=== PATIENT | female | born 1990 | race Caucasian/White ===

== ENCOUNTER 2020-08-08 09:07 | Emergency (ER) | payer SELFPAY ==
[~2020-08-08] VITALS: Ht 154.9 cm; Wt 86.2 kg
[2020-08-08 09:19] VITALS: BP 144/93
[2020-08-08 09:57] LABS: BASOPHILS % (AUTO) 0.4 % (0.0-2.0); EOSINOPHILS % (AUTO) 0.1 % (0.0-4.0); HEMATOCRIT 35.8 % (36-48); HEMOGLOBIN 12.1 g/dL (12.0-16.0); LYMPHOCYTES # (AUTO) 0.9 K/uL (2.5-16.5); LYMPHOCYTES % (AUTO) 7.1 % (20.5-51.1); MEAN CORPUSCULAR HEMOGLOBIN 31 pg (27-31); MEAN CORPUSCULAR HGB CONC 34 g/dL (33-37); MEAN CORPUSCULAR VOLUME 92.9 fL (80-94); MONOCYTES # (AUTO) 0.5 K/uL (0.8-1.0); MONOCYTES % (AUTO) 4.1 % (1.7-9.3); NEUTROPHILS # (AUTO) 10.6 K/uL (1.8-7.7); NEUTROPHILS % (AUTO) 88.3 % (42.2-75.2); PLATELET COUNT (AUTO) 321 K/uL (140-450); RED BLOOD CELL COUNT(AUTO) 3.86 MIL/uL (4.20-5.40); RED CELL DISTRIBUTION WIDTH 12.6 % (11.6-13.7)
[2020-08-08] MEDS: DICYCLOMINE 20 MG/2 ML VIAL IM ONE (10:02)
[2020-08-08 10:06] LABS: APPEARANCE,URINE CLEAR (CLEAR); BILIRUBIN,URINE NEGATIVE (NEGATIVE); BLOOD, URINE 2+ (NEGATIVE); COLOR,URINE YELLOW (YELLOW); LEUKOCYTE ESTERASE ,URINE NEGATIVE (NEGATIVE); NITRITE, URINE NEGATIVE (NEGATIVE); UGLUCOSE NEGATIVE (NEGATIVE)
[2020-08-08 10:12] LABS: ALBUMIN 3.4 g/dL (3.4-5.0); CARBON DIOXIDE 25.7 mmol/L (21-32); CREATININE 0.6 mg/dL (0.6-1.3); POTASSIUM 3.7 mmol/L (3.5-5.1); TOTAL BILIRUBIN 0.3 mg/dL (0.0-1.0)
[2020-08-08 10:17] LABS: RBC,URINE 0-5 /HPF (0-5); WBC,URINE 0-5 /HPF (0-5)
[2020-08-08] MEDS ORDERED: METR500T1 PO (11:28)
[2020-08-08] MEDS ORDERED: BEN10 PO (11:28)
[2020-08-08] MEDS ORDERED: CIPR500T4 PO (11:28)
[2020-08-08] MEDS ORDERED: NAPR-54 PO (11:28)
[2020-08-08 11:50] VITALS: BP 154/93
== END 2020-08-08 11:45 | disposition home or self-care (01) ==
LOC: MED 09:07
DX: K57.32 Diverticulitis of large intestine without perforation or abscess without bleeding (principal); Z79.899 Other long term (current) drug therapy; Z79.1 Long term (current) use of non-steroidal anti-inflammatories (NSAID); Z79.2 Long term (current) use of antibiotics
CPT/HCPCS: 36415; 74176; 80053; 81001; 81025; 83690; 85025; 96372; 99284; J0500

== ENCOUNTER 2021-05-31 18:46 | Emergency (ER) | payer MEDICAID ==
[~2021-05-31] VITALS: Ht 162.6 cm; Wt 72.1 kg
[~2021-05-31 18:46] MED LIST: BEN10 PO; CIPR500T4 PO; METR500T1 PO; NAPR-54 PO
[2021-05-31 18:49] VITALS: BP 118/85
--- NOTE | 2021-05-31 18:55 | NUR ---
PT AMBULATED TO BED, STEADY GAIT.
--- NOTE | 2021-05-31 19:00 | NUR ---
31 Y/O F AMBULATED TO BED 1, C/O ABD X 1 ON IN OFF, NAUSEA AND CONSTIPATION SINCE YESTERDAY TAKING AMOXICILLIN AND TYLENOL WITH LITTLE RELIEF. MEDHX: DIVERTICULITIS NKDA
--- NOTE | 2021-05-31 19:06 | NUR ---
LAB AT BEDSIDE TO DRAW BLOOD WORK
[2021-05-31 19:16] LABS: BASOPHILS # (AUTO) 0.1 K/uL (0.00-0.22); BASOPHILS % (AUTO) 0.6 % (0.0-2.0); EOSINOPHILS % (AUTO) 0.2 % (0.0-4.0); HEMATOCRIT 35.7 % (36-48); HEMOGLOBIN 11.7 g/dL (12.0-16.0); LYMPHOCYTES # (AUTO) 1.7 K/uL (2.5-16.5); LYMPHOCYTES % (AUTO) 11.7 % (20.5-51.1); MEAN CORPUSCULAR HEMOGLOBIN 30 pg (27-31); MEAN CORPUSCULAR HGB CONC 33 g/dL (33-37); MEAN CORPUSCULAR VOLUME 92.3 fL (80-94); MONOCYTES # (AUTO) 0.9 K/uL (0.8-1.0); MONOCYTES % (AUTO) 5.9 % (1.7-9.3); NEUTROPHILS # (AUTO) 12.1 K/uL (1.8-7.7); NEUTROPHILS % (AUTO) 81.6 % (42.2-75.2); PLATELET COUNT (AUTO) 389 K/uL (140-450); RED BLOOD CELL COUNT(AUTO) 3.87 MIL/uL (4.20-5.40); RED CELL DISTRIBUTION WIDTH 12.3 % (11.6-13.7); WHITE BLOOD COUNT (AUTO) 14.9 K/uL (4.8-10.8)
--- NOTE | 2021-05-31 19:22 | NUR ---
Pt report given to RADHA Landeros. Transfer of care at this time.
[2021-05-31 19:25] LABS: BILIRUBIN,URINE NEGATIVE (NEGATIVE); BLOOD, URINE 2+ (NEGATIVE); COLOR,URINE YELLOW (YELLOW); LEUKOCYTE ESTERASE ,URINE TRACE (NEGATIVE); NITRITE, URINE NEGATIVE (NEGATIVE); UGLUCOSE NEGATIVE (NEGATIVE)
[2021-05-31 19:28] LABS: APPEARANCE,URINE HAZY (CLEAR)
--- NOTE | 2021-05-31 19:32 | NUR ---
Dr. Sherwood examining patient.
[2021-05-31] MEDS ORDERED: MORPHINE SULFATE 4 MG/ML SYR IVP ONE (19:35)
[2021-05-31] MEDS ORDERED: DICYCLOMINE HCL LIQUID 10 MG/5 ML UDC PO ONE (19:35)
[2021-05-31] MEDS ORDERED: ONDANSETRON 4 MG/2 ML VIAL IVP ONE (19:35)
[2021-05-31] MEDS ORDERED: NACL 0.9% 1,000 ML IV ONE (19:35)
[2021-05-31 19:37] LABS: RBC,URINE 0-5 /HPF (0-5)
[2021-05-31 19:38] LABS: ANION GAP 15.1 (8-16); CARBON DIOXIDE 24.2 mmol/L (21-32); CREATININE 0.7 mg/dL (0.6-1.3); POTASSIUM 3.3 mmol/L (3.5-5.1)
[2021-05-31 19:43] LABS: ALBUMIN 3.5 g/dL (3.4-5.0); TOTAL BILIRUBIN 0.5 mg/dL (0.0-1.0)
--- NOTE | 2021-05-31 20:34 | NUR ---
PT TAKEN TO CT VIA WC
--- NOTE | 2021-05-31 20:35 | NUR ---
Julien sanchez in [facility] - 05/31/21 at 2035 by HALLEY PT TAKEN TO CT VIA W/C
[2021-05-31] MEDS ORDERED: ACET-10509 PO (22:08)
[2021-05-31] MEDS ORDERED: BEN10 PO (22:08)
[2021-05-31] MEDS ORDERED: AMOX1TAB8 PO (22:08)
[2021-05-31] MEDS ORDERED: CEPH-588 PO (22:10)
[2021-05-31] MEDS ORDERED: cephALEXin 500 MG CAP PO ONE (22:15)
[2021-05-31] MEDS ORDERED: AMOXIL/CLAVULANATE 875/125 MG 1 TAB PO ONE (22:15)
[2021-05-31 22:30] VITALS: BP 118/85
--- NOTE | 2021-05-31 22:30 | NUR ---
Patient discharged with v/s stable. Written and verbal after care instructions given and explained. Patient alert, oriented and verbalized understanding of instructions. Ambulatory with steady gait. All questions addressed prior to discharge. ID band removed. Patient advised to follow up with PMD. Rx of keflex, Amoxicillin, Bentyl given. Patient educated on indication of medication including possible reaction and side effects. Opportunity to ask questions provided and answered.
== END 2021-05-31 22:30 | disposition home or self-care (01) ==
LOC: MED 18:46
DX: K57.92 Diverticulitis of intestine, part unspecified, without perforation or abscess without bleeding (principal); N39.0 Urinary tract infection, site not specified; E87.6 Hypokalemia; Z79.899 Other long term (current) drug therapy
CPT/HCPCS: 36415; 74176; 80053; 81001; 81025; 83690; 85025; 87086; 96361; 96374; 96375; 99284; J2270; J2405; J7030

== ENCOUNTER 2021-06-07 03:16 | Emergency (ER) | payer MEDICAID ==
[~2021-06-07] VITALS: Ht 162.6 cm; Wt 71.2 kg
[~2021-06-07 03:16] MED LIST changes: +ACET-10509 PO; +AMOX1TAB8 PO; +CEPH-588 PO
[2021-06-07 03:19] VITALS: BP 120/73
[2021-06-07] MEDS ORDERED: MORPHINE SULFATE 4 MG/ML SYR IVP ONE (03:35)
[2021-06-07] MEDS ORDERED: ONDANSETRON 4 MG/2 ML VIAL IVP ONE (03:35)
[2021-06-07 03:50] LABS: APPEARANCE,URINE CLEAR (CLEAR); BILIRUBIN,URINE NEGATIVE (NEGATIVE); BLOOD, URINE 3+ (NEGATIVE); COLOR,URINE YELLOW (YELLOW); LEUKOCYTE ESTERASE ,URINE NEGATIVE (NEGATIVE); NITRITE, URINE NEGATIVE (NEGATIVE); UGLUCOSE NEGATIVE (NEGATIVE)
[2021-06-07 04:00] LABS: BASOPHILS % (AUTO) 0.2 % (0.0-2.0); EOSINOPHILS % (AUTO) 0.3 % (0.0-4.0); HEMOGLOBIN 11.1 g/dL (12.0-16.0); LYMPHOCYTES # (AUTO) 2.4 K/uL (2.5-16.5); LYMPHOCYTES % (AUTO) 19.6 % (20.5-51.1); MEAN CORPUSCULAR HEMOGLOBIN 30 pg (27-31); MEAN CORPUSCULAR HGB CONC 33 g/dL (33-37); MEAN CORPUSCULAR VOLUME 92.7 fL (80-94); MONOCYTES # (AUTO) 0.5 K/uL (0.8-1.0); MONOCYTES % (AUTO) 4.4 % (1.7-9.3); NEUTROPHILS # (AUTO) 9.1 K/uL (1.8-7.7); NEUTROPHILS % (AUTO) 75.5 % (42.2-75.2); PLATELET COUNT (AUTO) 418 K/uL (140-450); RED BLOOD CELL COUNT(AUTO) 3.67 MIL/uL (4.20-5.40); RED CELL DISTRIBUTION WIDTH 12.2 % (11.6-13.7); WHITE BLOOD COUNT (AUTO) 12.1 K/uL (4.8-10.8)
[2021-06-07 04:08] LABS: RBC,URINE 50-80 /HPF (0-5); WBC,URINE 0-5 /HPF (0-5)
[2021-06-07 04:09] LABS: ALBUMIN 3.3 g/dL (3.4-5.0); ANION GAP 12.9 (8-16); CARBON DIOXIDE 26.2 mmol/L (21-32); CREATININE 0.7 mg/dL (0.6-1.3); POTASSIUM 3.1 mmol/L (3.5-5.1); TOTAL BILIRUBIN 0.2 mg/dL (0.0-1.0)
[2021-06-07] MEDS ORDERED: HYDROcodone/APAP 5/325 MG 1 TAB TAB PO ONE (05:05)
[2021-06-07] MEDS ORDERED: KETOROLAC 30 MG/ML VIAL IVP ONE (05:05)
[2021-06-07] MEDS ORDERED: ACET-9525 PO (06:54)
[2021-06-07] MEDS ORDERED: METR-435 PO (06:54)
[2021-06-07] MEDS ORDERED: CIPR500T4 PO (06:54)
[2021-06-07 07:02] VITALS: BP 118/74
== END 2021-06-07 07:02 | disposition home or self-care (01) ==
LOC: MED 03:16
DX: K57.92 Diverticulitis of intestine, part unspecified, without perforation or abscess without bleeding (principal); Z79.899 Other long term (current) drug therapy
CPT/HCPCS: 36415; 74177; 80053; 81001; 81025; 83690; 85025; 87086; 96374; 96375; 99285; J1885; J2270; J2405; Q9967

== ENCOUNTER 2021-09-12 01:25 | Inpatient (IN) | payer SELFPAY ==
[~2021-09-12] VITALS: Ht 154.9 cm; Wt 71.2 kg
[~2021-09-12 01:25] MED LIST changes: +ACET-9525 PO; +METR-435 PO
[2021-09-12 01:29] VITALS: BP 122/85
--- NOTE | 2021-09-12 01:37 | NUR ---
pt to lobby to frank fernandez
[2021-09-12 02:18] LABS: BASOPHILS # (AUTO) 0.1 K/uL (0.00-0.22); BASOPHILS % (AUTO) 0.5 % (0.0-2.0); EOSINOPHILS % (AUTO) 0.1 % (0.0-4.0); HEMATOCRIT 32.9 % (36-48); HEMOGLOBIN 10.7 g/dL (12.0-16.0); LYMPHOCYTES # (AUTO) 1.8 K/uL (2.5-16.5); LYMPHOCYTES % (AUTO) 13.1 % (20.5-51.1); MEAN CORPUSCULAR HEMOGLOBIN 30 pg (27-31); MEAN CORPUSCULAR HGB CONC 33 g/dL (33-37); MEAN CORPUSCULAR VOLUME 91.9 fL (80-94); MONOCYTES # (AUTO) 0.7 K/uL (0.8-1.0); MONOCYTES % (AUTO) 5.5 % (1.7-9.3); NEUTROPHILS % (AUTO) 80.8 % (42.2-75.2); PLATELET COUNT (AUTO) 342 K/uL (140-450); RED BLOOD CELL COUNT(AUTO) 3.58 MIL/uL (4.20-5.40); RED CELL DISTRIBUTION WIDTH 13.1 % (11.6-13.7); WHITE BLOOD COUNT (AUTO) 13.7 K/uL (4.8-10.8)
[2021-09-12] MEDS ORDERED: NACL 0.9% 2,000 ML IV ONE (02:25)
[2021-09-12] MEDS ORDERED: cefTRIAXone 1,000 MG in DEXTROSE 5% 100 ML IV ONE (02:25)
[2021-09-12 02:31] LABS: ALBUMIN 3.3 g/dL (3.4-5.0); ANION GAP 9.6 (8-16); CARBON DIOXIDE 28.8 mmol/L (21-32); CREATININE 0.5 mg/dL (0.6-1.3); POTASSIUM 3.4 mmol/L (3.5-5.1); TOTAL BILIRUBIN 0.5 mg/dL (0.0-1.0)
[2021-09-12 02:33] LABS: APPEARANCE,URINE CLOUDY (CLEAR); BILIRUBIN,URINE NEGATIVE (NEGATIVE); BLOOD, URINE 3+ (NEGATIVE); COLOR,URINE RED (YELLOW); LEUKOCYTE ESTERASE ,URINE 1+ (NEGATIVE); NITRITE, URINE POSITIVE (NEGATIVE); UGLUCOSE NEGATIVE (NEGATIVE)
[2021-09-12] MEDS ORDERED: cefTRIAXone 1,000 MG VIAL ONE ×2 (02:45→08:31)
[2021-09-12] MEDS ORDERED: ONDANSETRON 4 MG/2 ML VIAL IVP ONE (02:50)
[2021-09-12] MEDS ORDERED: MORPHINE SULFATE 4 MG/ML SYR IVP ONE (02:50)
--- NOTE | 2021-09-12 02:55 | NUR ---
LAB AT BEDSIDE
[2021-09-12 03:09] LABS: RBC,URINE TOO NUMEROUS TO COUN /HPF (0-5)
--- NOTE | 2021-09-12 03:12 | NUR ---
PT RETURN FROM CT
--- NOTE | 2021-09-12 03:27 | NUR ---
31 yo/f presents to ED w c/o lower abdominal cramping 09/16 int non-rad x1-2 days, + nausea, +chills and urinary frequency. Pt denies any fevers, v/d, constipation, or other urinary symptoms. Pt recently medicated, denies any pain or nausea at this time. vs w/in normal limits. will continue to monitor. pmh: diverticulosis allergies: denies
--- NOTE | 2021-09-12 05:38 | NUR ---
pt desnies ongoing pain or nausea at this time. awaiting ct results.
[2021-09-12] MEDS ORDERED: PIPERACILLIN/TAZOBACTAM 3.375 GM in DEXTROSE 5% 50 ML IV ONE (05:55)
--- NOTE | 2021-09-12 06:34 | NUR ---
TUAN COLLECTED, HANDED TO LAB
--- NOTE | 2021-09-12 07:12 | NUR ---
Pt report given to rena jones. Transfer of care at this time.
[2021-09-12] MEDS ORDERED: PIPERACILLIN/TAZOBACTAM 3.375 GM VIAL IV ONE (08:45)
[2021-09-12] MEDS: NACL 0.9% 1,000 ML IV SCH (09:48)
[2021-09-12] MEDS: LEVOFLOXACIN 500 MG/D5W PREMIX 100 ML IV SCH (10:13)
--- NOTE | 2021-09-12 11:30 | NUR ---
Patient appears to be resting comfortably in bed. Vital Signs within normal limits. Respirations even and unlabored.
[2021-09-12] MEDS: metroNIDAZOLE 500 MG/NS PREMIX 100 ML IV SCH ×2 (13:19→21:25)
[2021-09-12] MEDS ORDERED: HYDROcodone/APAP 7.5/325 MG 1 TAB PO PRN (13:20)
[2021-09-12] MEDS ORDERED: POTASSIUM CHLORIDE 10 MEQ TABER PO PRN (13:20)
[2021-09-12] MEDS ORDERED: ACETAMINOPHEN 325 MG TAB PO PRN (13:20)
[2021-09-12] MEDS ORDERED: guaiFENesin DM 200/20 MG-10 ML 10 ML UDC PO PRN (13:20)
[2021-09-12] MEDS ORDERED: DOCUSATE SODIUM 100 MG GELCAP PO PRN (13:20)
[2021-09-12] MEDS ORDERED: ZOLPIDEM 5 MG TAB PO PRN (13:20)
[2021-09-12 14:31] LABS: AMYLASE 42 U/L (25-115)
--- NOTE | 2021-09-12 15:30 | NUR ---
Patient appears to be resting comfortably in bed. Vital Signs within normal limits. Respirations even and unlabored.
--- NOTE | 2021-09-12 15:41 | NUR ---
pt asked for food at this time. kusum contacted for npo status. kusum redding states pt is on bowel rest for diverticulitis. pt made aware at this time.
--- NOTE | 2021-09-12 15:43 | NUR ---
mrsa swabbed and given to lab at this time
[2021-09-12 16:15] LABS: LIPASE 67 U/L (73-393)
--- NOTE | 2021-09-12 16:26 | NUR ---
PATIENT HAS BEEN SCREENED AND CATEGORIZED LOW NUTRITION RISK. PATIENT WILL BE SEEN WITHIN 7 DAYS OF ADMISSION. 09/18/[address]
--- NOTE | 2021-09-12 17:00 | NUR ---
Patient appears to be resting comfortably in bed. Vital Signs within normal limits. Respirations even and unlabored.
--- NOTE | 2021-09-12 17:16 | NUR ---
pt ambulated to bathroom with even and steady gait at this time
--- NOTE | 2021-09-12 19:26 | NUR ---
RECIEVED TRANSFER OF CARE REPORT FROM RADHA CONTRERAS
[2021-09-13] MEDS: metroNIDAZOLE 500 MG/NS PREMIX 100 ML IV SCH (05:18)
[2021-09-13] MEDS: ONDANSETRON 4 MG/2 ML VIAL IM/IVP PRN ×2 (05:28→10:40)
[2021-09-13 05:52] LABS: BASOPHILS % (AUTO) 0.3 % (0.0-2.0); EOSINOPHILS % (AUTO) 0.1 % (0.0-4.0); HEMATOCRIT 29.5 % (36-48); HEMOGLOBIN 9.6 g/dL (12.0-16.0); LYMPHOCYTES # (AUTO) 1.3 K/uL (2.5-16.5); LYMPHOCYTES % (AUTO) 15.5 % (20.5-51.1); MEAN CORPUSCULAR HEMOGLOBIN 30 pg (27-31); MEAN CORPUSCULAR HGB CONC 33 g/dL (33-37); MEAN CORPUSCULAR VOLUME 92.9 fL (80-94); MONOCYTES # (AUTO) 0.4 K/uL (0.8-1.0); NEUTROPHILS # (AUTO) 6.8 K/uL (1.8-7.7); NEUTROPHILS % (AUTO) 79.1 % (42.2-75.2); PLATELET COUNT (AUTO) 267 K/uL (140-450); RED BLOOD CELL COUNT(AUTO) 3.18 MIL/uL (4.20-5.40); RED CELL DISTRIBUTION WIDTH 12.7 % (11.6-13.7); WHITE BLOOD COUNT (AUTO) 8.6 K/uL (4.8-10.8)
[2021-09-13 06:17] LABS: ANION GAP 13.5 (8-16); CREATININE 0.4 mg/dL (0.6-1.3); POTASSIUM 3.5 mmol/L (3.5-5.1)
--- NOTE | 2021-09-13 07:25 | NUR ---
TRANSFER OF CARE REPORT GIVEN TO RADHA WHITING
[2021-09-13] MEDS ORDERED: PANTOPRAZOLE 40 MG TABEC PO SCH (09:00)
--- NOTE | 2021-09-13 09:11 | NUR ---
PT MOVED TO ER BED 5
[2021-09-13] MEDS: NACL 0.9% 1,000 ML IV SCH (09:46)
--- NOTE | 2021-09-13 09:47 | NUR ---
NS 70/HR NEVER STARTED ON NOC SHIFT . NS STARTED NOW
[2021-09-13] MEDS ORDERED: LEVO750T51 PO (10:00)
[2021-09-13] MEDS ORDERED: METR-435 PO (10:00)
[2021-09-13] MEDS ORDERED: PSYL0.4C2 PO (10:00)
--- NOTE | 2021-09-13 10:37 | NUR ---
FOOD GIVEN TO PATIENT TOLERATED. PT MAY DC WHEN READY PER DR VERDIN. PT STATES FEELING A LITTLE NAUSED AFTER EATING BREAKFAST. WILL CONTINUE TO MONTIOR PATIENT
[2021-09-13] MEDS: LEVOFLOXACIN 500 MG/D5W PREMIX 100 ML IV SCH (10:40)
--- NOTE | 2021-09-13 11:36 | NUR ---
PT TOLERATED BREAKFAST. EAT 30% . FAMILY AT BEDSIDE. PENDING DC PAPERWORK
[2021-09-13 11:39] VITALS: BP 112/68
[2021-09-13 12:02] VITALS: BP 112/68
--- NOTE | 2021-09-13 12:02 | NUR ---
PATIENT DISCHARGE with v/s stable PER DR VERDIN. . Written and verbal after care instructions given and explained. Patient alert, oriented and verbalized understanding of instructions. Ambulatory with steady gait. All questions addressed prior to discharge. ID band removed. Patient advised to follow up with PMD. Rx of given. Patient educated on indication of medication including possible reaction and side effects. Opportunity to ask questions provided and answered.
== END 2021-09-13 12:02 | disposition home or self-care (01) | DRG 872 ==
LOC: MED 01:25 → MTU 06:14 → MMU 06:14
PROVIDERS: ADMIT Student in an Organized Health Care Education/Training Program; ATTEND Student in an Organized Health Care Education/Training Program
DX: A41.9 Sepsis, unspecified organism (principal); N39.0 Urinary tract infection, site not specified; E44.1 Mild protein-calorie malnutrition; K57.92 Diverticulitis of intestine, part unspecified, without perforation or abscess without bleeding; E83.51 Hypocalcemia; E87.6 Hypokalemia; D64.9 Anemia, unspecified; Z20.822 Contact with and (suspected) exposure to COVID-19; Z79.899 Other long term (current) drug therapy
CPT/HCPCS: 36415; 80048; 80053; 81001; 82150; 83605; 83690; 83880; 84703; 85025; 87040; 87081; 87086; 96361; 96365; 96367; 96375; 99291; J0696; J1956; J2270; J2405; J2543; J3490; J7030; Q9967

== ENCOUNTER 2021-09-16 16:46 | Inpatient (IN) | payer MEDICAID ==
[~2021-09-16] VITALS: Ht 154.9 cm; Wt 68.9 kg
[~2021-09-16 16:46] MED LIST changes: -ACET-9525 PO; -AMOX1TAB8 PO; -BEN10 PO; -CEPH-588 PO; -CIPR500T4 PO; +LEVO750T51 PO; -METR500T1 PO; -NAPR-54 PO; +PSYL0.4C2 PO
[2021-09-16 16:52] VITALS: BP 120/72
--- NOTE | 2021-09-16 16:59 | NUR ---
PT AMB TO BED 11.
--- NOTE | 2021-09-16 17:15 | NUR ---
31 Y/O FEMALE C/O LLQ ABDOMINAL PAIN THAT RADIATES TO LOWER BACK X1 DAY. 6/10 SHARP PAIN. 1 EPISODE OF VOMITING TODAY. DENIES FEVER, CHILLS, CP, SOB. ABDOMEN SOFT, FLAT. BOWEL SOUNDS ACTIVE. DX WITH DIVERTICULITIS. DC FROM [facility] ON FRIDAY.
--- NOTE | 2021-09-16 17:20 | NUR ---
REPORT GIVEN TO RADHA JESUS. Pt report given to RADHA Jesus. Transfer of care at this time.
--- NOTE | 2021-09-16 17:25 | NUR ---
DR DSOUZA AT BEDSIDE FOR EVALUATION
[2021-09-16] MEDS ORDERED: MORPHINE SULFATE 4 MG/ML SYR IVP ONE (17:50)
[2021-09-16] MEDS ORDERED: ONDANSETRON 4 MG/2 ML VIAL IVP ONE ×2 (17:50→23:40)
[2021-09-16 18:10] LABS: BILIRUBIN,URINE NEGATIVE (NEGATIVE); BLOOD, URINE 1+ (NEGATIVE); COLOR,URINE YELLOW (YELLOW); LEUKOCYTE ESTERASE ,URINE TRACE (NEGATIVE); NITRITE, URINE NEGATIVE (NEGATIVE); UGLUCOSE NEGATIVE (NEGATIVE)
[2021-09-16] MEDS ORDERED: NACL 0.9% 1,000 ML IV ONE (18:15)
[2021-09-16 18:21] LABS: APPEARANCE,URINE HAZY (CLEAR)
[2021-09-16 18:39] LABS: RBC,URINE 0-5 /HPF (0-5); WBC,URINE 0-5 /HPF (0-5)
[2021-09-16 21:10] LABS: ALBUMIN 2.8 g/dL (3.4-5.0); ANION GAP 10.9 (8-16); CREATININE 0.4 mg/dL (0.6-1.3); POTASSIUM 3.9 mmol/L (3.5-5.1); TOTAL BILIRUBIN 0.3 mg/dL (0.0-1.0)
[2021-09-16 21:21] LABS: BASOPHILS # (AUTO) 0.1 K/uL (0.00-0.22); BASOPHILS % (AUTO) 0.6 % (0.0-2.0); EOSINOPHILS % (AUTO) 0.1 % (0.0-4.0); HEMATOCRIT 30.3 % (36-48); HEMOGLOBIN 9.8 g/dL (12.0-16.0); LYMPHOCYTES # (AUTO) 1.5 K/uL (2.5-16.5); LYMPHOCYTES % (AUTO) 11.2 % (20.5-51.1); MEAN CORPUSCULAR HEMOGLOBIN 30 pg (27-31); MEAN CORPUSCULAR HGB CONC 32 g/dL (33-37); MEAN CORPUSCULAR VOLUME 93.1 fL (80-94); MONOCYTES # (AUTO) 0.6 K/uL (0.8-1.0); MONOCYTES % (AUTO) 4.7 % (1.7-9.3); NEUTROPHILS # (AUTO) 11.3 K/uL (1.8-7.7); NEUTROPHILS % (AUTO) 83.4 % (42.2-75.2); PLATELET COUNT (AUTO) 307 K/uL (140-450); RED BLOOD CELL COUNT(AUTO) 3.26 MIL/uL (4.20-5.40); RED CELL DISTRIBUTION WIDTH 12.8 % (11.6-13.7); WHITE BLOOD COUNT (AUTO) 13.5 K/uL (4.8-10.8)
[2021-09-16] MEDS ORDERED: metroNIDAZOLE 500 MG/NS PREMIX 100 ML IV ONE (21:45)
[2021-09-16] MEDS ORDERED: LEVOFLOXACIN 750 MG/D5W PREMIX 150 ML IV ONE (21:45)
[2021-09-17] MEDS: metroNIDAZOLE 500 MG/NS PREMIX 100 ML IV SCH ×3 (03:32→18:57)
[2021-09-17] MEDS ORDERED: ACETAMINOPHEN 325 MG TAB PO PRN (05:35)
[2021-09-17] MEDS ORDERED: MORPHINE SULFATE 2 MG/ML SYR IVP PRN (05:35)
[2021-09-17] MEDS ORDERED: HYDROcodone/APAP 7.5/325 MG 1 TAB PO PRN (05:35)
[2021-09-17] MEDS ORDERED: ZOLPIDEM 5 MG TAB PO PRN (05:35)
[2021-09-17] MEDS ORDERED: guaiFENesin DM 200/20 MG-10 ML 10 ML UDC PO PRN (05:35)
[2021-09-17] MEDS ORDERED: DOCUSATE SODIUM 100 MG GELCAP PO PRN (05:35)
[2021-09-17] MEDS ORDERED: ONDANSETRON 4 MG/2 ML VIAL IM/IVP PRN (05:35)
[2021-09-17] MEDS: DEXT 5% /NACL 0.9% 1,000 ML IV SCH ×2 (06:00→15:48)
[2021-09-17 06:51] LABS: MAGNESIUM 1.5 mg/dL (1.8-2.4); PHOSPHORUS 3.8 mg/dL (2.5-4.9); PROTHROMBIN TIME 11.6 secs (10.8-13.4)
--- NOTE | 2021-09-17 07:45 | NUR ---
Pt report given to Mariel GARCIA. Transfer of care at this time.
[2021-09-17 07:56] LABS: ANION GAP 9.3 (8-16); CARBON DIOXIDE 27.3 mmol/L (21-32); CREATININE 0.4 mg/dL (0.6-1.3); POTASSIUM 3.6 mmol/L (3.5-5.1)
[2021-09-17 07:57] LABS: BASOPHILS % (AUTO) 0.2 % (0.0-2.0); EOSINOPHILS % (AUTO) 0.1 % (0.0-4.0); HEMATOCRIT 29.2 % (36-48); HEMOGLOBIN 9.6 g/dL (12.0-16.0); LYMPHOCYTES # (AUTO) 1.8 K/uL (2.5-16.5); LYMPHOCYTES % (AUTO) 19.8 % (20.5-51.1); MEAN CORPUSCULAR HEMOGLOBIN 30 pg (27-31); MEAN CORPUSCULAR HGB CONC 33 g/dL (33-37); MONOCYTES # (AUTO) 0.5 K/uL (0.8-1.0); MONOCYTES % (AUTO) 5.1 % (1.7-9.3); NEUTROPHILS # (AUTO) 6.8 K/uL (1.8-7.7); NEUTROPHILS % (AUTO) 74.8 % (42.2-75.2); PLATELET COUNT (AUTO) 330 K/uL (140-450); RED CELL DISTRIBUTION WIDTH 12.8 % (11.6-13.7); WHITE BLOOD COUNT (AUTO) 9.1 K/uL (4.8-10.8)
--- NOTE | 2021-09-17 08:01 | NUR ---
Patient will be admitted to care of Derek REA. Admitted to med surg. Will go to room 122a. Belongings list completed. Report to kumar chase.
[2021-09-17] MEDS: PANTOPRAZOLE 40 MG INJ VIAL IVP SCH (09:00)
[2021-09-17 10:00] VITALS: BP 105/65
--- NOTE | 2021-09-17 14:31 | NUR ---
PATIENT HAS BEEN SCREENED AND CATEGORIZED LOW NUTRITION RISK. PATIENT WILL BE SEEN WITHIN 7 DAYS OF ADMISSION. 09/23/[address]
[2021-09-17 16:00] VITALS: BP 121/46
[2021-09-17] MEDS ORDERED: MAGNESIUM OXIDE 400 MG TAB PO SCH (18:00)
--- NOTE | 2021-09-17 19:30 | NUR ---
RECEIVED REPORT FROM KRISSY GARCIA, PATIENT WAS STABLE AT CHANGE OF SHIFT. PATIENT WAS RECEIVED IN BED ALERT AND ORIENTED X 4 WITH HOB ELEVATED AT 45 DEGREES FOR COMFORT. PATIENT HAS SIDE RAILS UP X 2. BED AT THE LOWEST LEVEL FOR SAFETY. CALL LIGHT WITHIN REACH FOR ASSISTANCE AND NEEDS. AT THIS TIME PATIENT HAS NO NOTED PAIN/DISCOMFORT. PATIENT HAS NO NOTED RESPIRATORY COMPLAINTS OR NEEDS. PATIENT IS ON ROOM AIR. [email or web address]
[2021-09-17 20:00] VITALS: BP 107/74
--- NOTE | 2021-09-17 21:13 | NUR ---
PATIENT IN BED ASLEEP CALL LIGHT WITHIN REACH FOR ASSISTANCE. PRIOR TO PATIENT FALLING ASLEEP URINE CUP WAS GIVEN FOR URINE COLLECTION. PATIENT IS AWARE TO GIVE US URINE FOR LAB WORK. SIDE RAILS UP X 2 FOR SAFETY AND ADJUSTMENTS. [email or web address]
--- NOTE | 2021-09-17 23:15 | NUR ---
PATIENT IN BED ASLEEP CALL LIGHT WITHIN REACH FOR ASSISTANCE. SIDE RAILS UP X 2 FOR SAFETY AND ADJUSTMENTS. NO S/S OF PAIN OR RESPIRATORY DISTRESS [email or web address]
[2021-09-18] MEDS: LEVOFLOXACIN 500 MG/D5W PREMIX 100 ML IV SCH ×2 (00:30→23:57)
--- NOTE | 2021-09-18 01:16 | NUR ---
PATIENT IN BED ASLEEP CALL LIGHT WITHIN REACH FOR ASSISTANCE. NO NOTED PAIN. NO NOTED RESPIRATORY DISTRESS. NO NOTED COLLECTION OF URINE AT THIS TIME. NURSING WILL CONTINUE TO MONITOR FOR URINE SAMPLE. SIDE RAILS UP X 2 FOR SAFETY AND ADJUSTMENTS. [email or web address]
[2021-09-18] MEDS: DEXT 5% /NACL 0.9% 1,000 ML IV SCH ×3 (01:35→21:35)
[2021-09-18] MEDS: metroNIDAZOLE 500 MG/NS PREMIX 100 ML IV SCH ×3 (03:00→18:49)
--- NOTE | 2021-09-18 03:30 | NUR ---
DURING ROUNDS NURSING NOTED THE PATIENT IN BED ASLEEP. COVERING RN WAS ABLE TO GIVE IV ANTIBIOTICS. NO SIDE EFFECTS NOTED FROM THE MEDICATION. SIDE RAILS UP X 2. CALL LIGHT IN REACH FOR ASSISTANCE. [email or web address]
[2021-09-18 04:00] VITALS: BP 107/67
--- NOTE | 2021-09-18 05:50 | NUR ---
MULTIPLE ATTEMPTS BY 3 DIFFERENT NURSES. NEW IV STARTED ON RIGHT HAND 20 DEVAN. PATIENT TOLERATED IT WELL. PREVIOUS IV LEAKED ALL OVER PATIENT AND BED. THE IV ON TH LEFT AC WAS NO LONGER GOOD TO USE. PATIENT WAS ABLE TO CHANGE, BED WAS MADE AND IVF AND MEDICATION RESUMED. CALL LIGHT WITHIN REACH FOR ASSISTANCE. SIDE RAILS UP X 4. [email or web address]
[2021-09-18 06:05] LABS: ANION GAP 10.8 (8-16); CARBON DIOXIDE 28.5 mmol/L (21-32); CREATININE 0.4 mg/dL (0.6-1.3); POTASSIUM 3.3 mmol/L (3.5-5.1)
--- NOTE | 2021-09-18 07:34 | NUR ---
ENDORSED KRISSY GARCIA, PATIENT WAS STABLE AT THE TIME OF SHIFT CHANGE. [email or web address]
--- NOTE | 2021-09-18 07:35 | NUR ---
GOT REPORT FROM THE NIGHT NURSE, PT SLEEPING ,LOOKS COMFORTABLE.[id number]
[2021-09-18 08:00] VITALS: BP 102/65
[2021-09-18 09:06] LABS: BARBITURATE, URINE NEGATIVE ng/ml (NEG <=200); BENZODIAZEPINE, URINE NEGATIVE ng/mL (NEG <=200); CANNABINOID, URINE NEGATIVE ng/mL (NEG <=50); COCAINE, URINE NEGATIVE ng/mL (NEG <=300); OPIATE, URINE NEGATIVE ng/mL (NEG <=2000); PHENCYCLIDINE SCREEN,URINE NEGATIVE ng/mL (NEG <=25)
[2021-09-18] MEDS: PANTOPRAZOLE 40 MG INJ VIAL IVP SCH (09:14)
[2021-09-18 09:21] LABS: BASOPHILS % (AUTO) 0.2 % (0.0-2.0); EOSINOPHILS % (AUTO) 0.3 % (0.0-4.0); HEMATOCRIT 29.7 % (36-48); HEMOGLOBIN 9.6 g/dL (12.0-16.0); LYMPHOCYTES # (AUTO) 1.6 K/uL (2.5-16.5); LYMPHOCYTES % (AUTO) 27.7 % (20.5-51.1); MEAN CORPUSCULAR HEMOGLOBIN 30 pg (27-31); MEAN CORPUSCULAR HGB CONC 32 g/dL (33-37); MONOCYTES # (AUTO) 0.3 K/uL (0.8-1.0); MONOCYTES % (AUTO) 5.9 % (1.7-9.3); NEUTROPHILS # (AUTO) 3.8 K/uL (1.8-7.7); NEUTROPHILS % (AUTO) 65.9 % (42.2-75.2); PLATELET COUNT (AUTO) 295 K/uL (140-450); WHITE BLOOD COUNT (AUTO) 5.7 K/uL (4.8-10.8)
--- NOTE | 2021-09-18 13:08 | NUR ---
DC PLANNING: THE PATIENT PRESENTED WITH C/O ABDOMINAL PAIN AND RECURRENT DIVERTICULITIS. THE PATIENT HAS BEEN TAKING PO ABX OUTPATIENT. WBC'S 13.5, ORDERS FOR GI CONSULT, LEVAQUIN AND FLAGYL. CM SPOKE WITH THE PATIENT AT BEDSIDE AND CONFIRMED HER ADDRESS AND PHONE NUMBER. THE PATIENT LIVES WITH HER MOTHER IN A MOBILE HOME AND IS INDEPENDENT IN ALL ACTIVITIES. 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 NO DC NEEDS IDENTIFIED, PATIENT WILL DC HOME WHEN CLINICALLY STABLE. CM WILL FOLLOW.
[2021-09-18] MEDS: POTASSIUM CHLORIDE 10 MEQ TABER PO PRN (14:04)
[2021-09-18 16:00] VITALS: BP 92/60
[2021-09-18 17:07] VITALS: BP 102/65
[2021-09-18 17:08] VITALS: BP 102/65
--- NOTE | 2021-09-18 19:31 | NUR ---
RECEIVED REPORT FROM KRISSY GARCIA, PATIENT WAS STABLE AT CHANGE OF SHIFT. PATIENT WAS RECEIVED IN BED ALERT AND ORIENTED X 2 WITH HOB ELEVATED AT 45 DEGREES FOR COMFORT. PATIENT HAS SIDE RAILS UP X 2. BED AT THE LOWEST LEVEL FOR SAFETY. CALL LIGHT WITHIN REACH FOR ASSISTANCE AND NEEDS. AT THIS TIME PATIENT HAS NO NOTED PAIN/DISCOMFORT. PATIENT HAS NO NOTED RESPIRATORY COMPLAINTS OR NEEDS. PATIENT IS ON ROOM AIR. [email or web address]
[2021-09-18 20:00] VITALS: BP 102/51
--- NOTE | 2021-09-18 20:00 | NUR ---
Patient's Plan of Care was discussed and reviewed with DEAN OF STUDENT SERVICES: CRISTOBAL MCKINNEY
--- NOTE | 2021-09-18 22:45 | NUR ---
PATIENT WAS GIVEN SLEEP MEDICATION. NURSING WILL MONITOR SIDE EFFECT AND EFFECTIVENESS OF THE MEDICATION. SIDE RAILS UP X 2. CALL LIGHT WITHIN REACH FO ASSISTANCE. PATIENT WAS GIVEN EDUCATION ON MEDICATION PURPOSE. NURSING WILL MAKE ROUNDS. [email or web address]
--- NOTE | 2021-09-18 23:57 | NUR ---
LEVAQUIN IVPB ADMINISTERED PER MD ORDER. PATIENT IS AWAKE. BREATHING NORMAL. SYMMETRICAL RISE AND FALL OF THE CHEST. NO COMPLAINTS OF PAIN AT THIS TIME. WILL CONTINUE TO MONITOR.
--- NOTE | 2021-09-19 00:08 | NUR ---
PATIENT NOTED IN BED WITH SIDE RAILS UP X 2 ASLEEP. NO NOTE S/S OF PAIN OR DISCOMFORT. BREATHING EVENLY WITHOUT INCIDENT. CALL LIGHT WITHIN REACH. NURSING WILL CONTINUE TO MONITOR FOR ANTICIPATED NEEDS. [id number]
--- NOTE | 2021-09-19 02:45 | NUR ---
PATIENT REMAINS ASLEEP AT THIS TIME. SIDE RAILS UP X 2. CALL LIGHT WITHIN REACH FOR ASSISTANCE. NURSING WILL MAKE ROUNDS TO ANTICIPATE NEEDS OR ASSISTANCE. [id number]
[2021-09-19] MEDS: metroNIDAZOLE 500 MG/NS PREMIX 100 ML IV SCH ×2 (02:49→11:22)
[2021-09-19 04:00] VITALS: BP 99/52
--- NOTE | 2021-09-19 05:40 | NUR ---
DURING ROUNDS NURSING NOTED PATIENT WAS ASLEEP. NO NOTED S/S OF PAIN/DISCOMFORT AT THIS TIME. CHEST RISING AND FALLING EVENLY. UNLABORED AND EVEN BREATHS. SIDE RAILS X 2 UP FOR SAFETY AND ADJUSTMENTS FOR COMFORT. CALL LIGHT WITHIN REACH FOR ASSISTANCE. [email or web address]
[2021-09-19 05:45] LABS: BASOPHILS % (AUTO) 0.3 % (0.0-2.0); EOSINOPHILS % (AUTO) 0.5 % (0.0-4.0); HEMATOCRIT 29.6 % (36-48); HEMOGLOBIN 9.8 g/dL (12.0-16.0); LYMPHOCYTES # (AUTO) 1.7 K/uL (2.5-16.5); LYMPHOCYTES % (AUTO) 38.1 % (20.5-51.1); MEAN CORPUSCULAR HEMOGLOBIN 30 pg (27-31); MEAN CORPUSCULAR HGB CONC 33 g/dL (33-37); MEAN CORPUSCULAR VOLUME 91.5 fL (80-94); MONOCYTES # (AUTO) 0.3 K/uL (0.8-1.0); MONOCYTES % (AUTO) 7.4 % (1.7-9.3); NEUTROPHILS # (AUTO) 2.5 K/uL (1.8-7.7); NEUTROPHILS % (AUTO) 53.7 % (42.2-75.2); PLATELET COUNT (AUTO) 306 K/uL (140-450); RED BLOOD CELL COUNT(AUTO) 3.23 MIL/uL (4.20-5.40); RED CELL DISTRIBUTION WIDTH 12.8 % (11.6-13.7); WHITE BLOOD COUNT (AUTO) 4.6 K/uL (4.8-10.8)
[2021-09-19 06:20] LABS: ANION GAP 9.7 (8-16); CARBON DIOXIDE 26.7 mmol/L (21-32); CREATININE 0.4 mg/dL (0.6-1.3); POTASSIUM 3.4 mmol/L (3.5-5.1)
--- NOTE | 2021-09-19 07:12 | NUR ---
PATIENT WAS ENDORSED TO KRISSY GARCIA, PATIENT WAS STABLE AT CHANGE OF SHIFT. [email or web address]
[2021-09-19] MEDS: DEXT 5% /NACL 0.9% 1,000 ML IV SCH (07:35)
--- NOTE | 2021-09-19 07:52 | NUR ---
RECEIVED REPORT FROM CRISTOBAL LEE. PT A/O X4. ABLE TO MAKE NEEDS KNOWN. NO SOB NOTED. RR EVEN & UNLABORED. RA. ON FULL LIQUID DIET. D5NS @ 100 ON R HAND #20. NEEDS ALL MET AT THIS TIME. SAFETY MEASURES IN PLACE.
[2021-09-19 08:00] VITALS: BP 126/80
[2021-09-19] MEDS: POTASSIUM CHLORIDE 10 MEQ TABER PO PRN (08:43)
[2021-09-19] MEDS: PANTOPRAZOLE 40 MG INJ VIAL IVP SCH (08:43)
[2021-09-19] MEDS ORDERED: METR-435 PO (10:37)
[2021-09-19] MEDS ORDERED: CIPR500T4 PO (10:37)
[2021-09-19] MEDS ORDERED: LACT1.4C PO (10:37)
[2021-09-19 12:00] VITALS: BP 121/79
--- NOTE | 2021-09-19 12:00 | NUR ---
OBSERVE PT AMBULATING TO AND FROM RESTROOM. NO SOB NOTED. ON RA. DENIES PAIN. ALL NEEDS MET AT THIS TIME. PT'S MOM AT BEDSIDE.
[2021-09-19 12:50] VITALS: BP 121/79
--- NOTE | 2021-09-19 14:30 | NUR ---
SPOKE WITH MD REGARDING EXCUSE FROM WORK NOTE AND VERBALIZED ORDER. DISCHARGE INSTRUCTIONS GIVEN. PT VERBALIZED UNDERSTANDING. IV DISCONTINUED ON R HAND, CATHETER INTACT. PT WITH STEADY GAIT. AMBULATED OUT WITH FAMILY MEMBER.
== END 2021-09-19 14:30 | disposition home or self-care (01) | DRG 720 ==
LOC: MED 16:46 → MMU 09-17 00:29 → MTU 09-17 05:49
PROVIDERS: ADMIT Student in an Organized Health Care Education/Training Program; ATTEND Student in an Organized Health Care Education/Training Program
DX: A41.9 Sepsis, unspecified organism (principal); E44.1 Mild protein-calorie malnutrition; K57.92 Diverticulitis of intestine, part unspecified, without perforation or abscess without bleeding; E83.51 Hypocalcemia; D64.9 Anemia, unspecified; E87.6 Hypokalemia; Z20.822 Contact with and (suspected) exposure to COVID-19; N39.0 Urinary tract infection, site not specified; E83.42 Hypomagnesemia; Z79.1 Long term (current) use of non-steroidal anti-inflammatories (NSAID); Z79.899 Other long term (current) drug therapy; Z79.891 Long term (current) use of opiate analgesic; Z68.28 Body mass index [BMI] 28.0-28.9, adult
CPT/HCPCS: 36415; 80048; 80053; 80305; 81001; 82150; 83690; 83735; 83880; 84100; 85025; 85610; 85730; 87081; 96361; 96365; 96367; 96375; 96376; 99285; C9113; J1956; J2270; J2405; J3490; J7030; Q9967

== ENCOUNTER 2022-05-02 16:07 | Emergency (ER) | payer MEDICAID, OTHER ==
[~2022-05-02] VITALS: Ht 154.9 cm; Wt 64.4 kg
[~2022-05-02 16:07] MED LIST changes: +CIPR500T4 PO; +LACT1.4C PO; -LEVO750T51 PO
[2022-05-02 16:51] VITALS: BP 114/66
[2022-05-02 17:37] LABS: BASOPHILS % (AUTO) 0.1 % (0.0-2.0); HEMATOCRIT 38.7 % (36-48); HEMOGLOBIN 12.8 g/dL (12.0-16.0); LYMPHOCYTES # (AUTO) 1.2 K/uL (2.5-16.5); MEAN CORPUSCULAR HEMOGLOBIN 32 pg (27-31); MEAN CORPUSCULAR HGB CONC 33 g/dL (33-37); MEAN CORPUSCULAR VOLUME 97.1 fL (80-94); MONOCYTES # (AUTO) 0.8 K/uL (0.8-1.0); MONOCYTES % (AUTO) 6.4 % (1.7-9.3); NEUTROPHILS # (AUTO) 10.2 K/uL (1.8-7.7); NEUTROPHILS % (AUTO) 83.5 % (42.2-75.2); PLATELET COUNT (AUTO) 294 K/uL (140-450); RED BLOOD CELL COUNT(AUTO) 3.99 MIL/uL (4.20-5.40); RED CELL DISTRIBUTION WIDTH 12.1 % (11.6-13.7); WHITE BLOOD COUNT (AUTO) 12.2 K/uL (4.8-10.8)
[2022-05-02 18:06] LABS: ALBUMIN 4.1 g/dL (3.4-5.0); ANION GAP 12.2 (8-16); CARBON DIOXIDE 27.9 mmol/L (21-32); CREATININE 0.7 mg/dL (0.6-1.3); POTASSIUM 4.1 mmol/L (3.5-5.1); TOTAL BILIRUBIN 0.5 mg/dL (0.0-1.0)
[2022-05-02] MEDS ORDERED: metroNIDAZOLE 500 MG/NS PREMIX 100 ML IV ONE (18:40)
--- NOTE | 2022-05-02 19:00 | NUR ---
PT AMB TO BED 1.
[2022-05-02] MEDS ORDERED: cefTRIAXone 1,000 MG VIAL ONE (19:02)
--- NOTE | 2022-05-02 19:30 | NUR ---
RECEIVED IN BED 1, AWAKE, ALERT WITH C/O LOWER ABDOMINAL PAIN, LOWER BACK PAIN, NAUSEA, CHILLS X 3 DAYS. PMH: DIVERTICULITIS
[2022-05-02] MEDS ORDERED: METR-520 PO (20:20)
[2022-05-02] MEDS ORDERED: CIPR500T4 PO (20:20)
[2022-05-02 22:05] VITALS: BP 114/66
--- NOTE | 2022-05-02 22:05 | NUR ---
Patient discharged with v/s stable. Written and verbal after care instructions given and explained. Patient alert, oriented and verbalized understanding of instructions. Ambulatory with steady gait. All questions addressed prior to discharge. ID band removed. Patient advised to follow up with PMD. Rx of CIPRO, AND FLAGYL given. Patient educated on indication of medication including possible reaction and side effects. Opportunity to ask questions provided and answered.
== END 2022-05-02 22:05 | disposition home or self-care (01) ==
LOC: MED 16:07
DX: K57.92 Diverticulitis of intestine, part unspecified, without perforation or abscess without bleeding (principal)
CPT/HCPCS: 36415; 74176; 80053; 81025; 83605; 83690; 85025; 96365; 99285; J0696; J3490

== ENCOUNTER 2022-05-05 00:26 | Emergency (ER) | payer OTHER ==
[~2022-05-05] VITALS: Ht 162.6 cm; Wt 64.4 kg
[~2022-05-05 00:26] MED LIST changes: +METR-520 PO
[2022-05-05 00:30] VITALS: BP 128/81
--- NOTE | 2022-05-05 01:09 | NUR ---
urine collected sent to lab
[2022-05-05 01:19] LABS: APPEARANCE,URINE CLEAR (CLEAR); BILIRUBIN,URINE NEGATIVE (NEGATIVE); BLOOD, URINE 1+ (NEGATIVE); COLOR,URINE YELLOW (YELLOW); LEUKOCYTE ESTERASE ,URINE 1+ (NEGATIVE); NITRITE, URINE NEGATIVE (NEGATIVE); PH,URINE 5.5 (5.0-9.0); UGLUCOSE NEGATIVE (NEGATIVE)
--- NOTE | 2022-05-05 01:30 | NUR ---
c/o intermittent lower abd pain 7/10 intermittent pain. pt taking 100 mg tylenol at home but ineffective. pt was previously here on prescribed medications for diverticulitis: flagyl and cipro. pmhx: tuberculosis, allergies: NKA PT ASSESSMENT DONE, AWAITING ORDERS
[2022-05-05 01:35] LABS: RBC,URINE 0-5 /HPF (0-5); WBC,URINE 0-5 /HPF (0-5)
[2022-05-05 01:41] LABS: ALBUMIN 3.9 g/dL (3.4-5.0); ANION GAP 12.7 (8-16); CHLORIDE 100 mmol/L (98-107); CREATININE 0.7 mg/dL (0.6-1.3); GFR ARICAN-AMERICAN 123 mL/min (>90); GLUCOSE 110 mg/dL (74-106); POTASSIUM 3.7 mmol/L (3.5-5.1); SODIUM SERUM 137 mmol/L (136-145); TOTAL BILIRUBIN 0.5 mg/dL (0.0-1.0); UREA NITROGEN, BLOOD 7 mg/dL (7-18)
[2022-05-05] MEDS ORDERED: KETOROLAC 30 MG/ML VIAL IVP ONE (02:00)
[2022-05-05] MEDS ORDERED: NACL 0.9% 1,000 ML IV ONE ×2 (02:00→08:05)
[2022-05-05 02:07] LABS: BASOPHILS % (AUTO) 0.3 % (0.0-2.0); EOSINOPHILS % (AUTO) 0.2 % (0.0-4.0); HEMATOCRIT 37.5 % (36-48); HEMOGLOBIN 12.3 g/dL (12.0-16.0); LYMPHOCYTES # (AUTO) 1.8 K/uL (2.5-16.5); LYMPHOCYTES % (AUTO) 15.5 % (20.5-51.1); MEAN CORPUSCULAR HEMOGLOBIN 32 pg (27-31); MEAN CORPUSCULAR HGB CONC 33 g/dL (33-37); MEAN CORPUSCULAR VOLUME 96.4 fL (80-94); MONOCYTES # (AUTO) 0.6 K/uL (0.8-1.0); MONOCYTES % (AUTO) 5.2 % (1.7-9.3); NEUTROPHILS # (AUTO) 9.3 K/uL (1.8-7.7); NEUTROPHILS % (AUTO) 78.8 % (42.2-75.2); PLATELET COUNT (AUTO) 332 K/uL (140-450); RED BLOOD CELL COUNT(AUTO) 3.89 MIL/uL (4.20-5.40); WHITE BLOOD COUNT (AUTO) 11.8 K/uL (4.8-10.8)
--- NOTE | 2022-05-05 03:45 | NUR ---
TUAN SWAB OBTAINED AND SENT TO LAB
--- NOTE | 2022-05-05 05:00 | NUR ---
PT INFORMED OF TRANSFER TO [facility] IN [place]. PT VERBALIZED UNDERSTANDING OF THE TRANSFER.
--- NOTE | 2022-05-05 07:30 | NUR ---
RECEIVED REPORT FROM EVERARDO GARCIA, ASSUMED CARE AT THIS TIME.
--- NOTE | 2022-05-05 07:56 | NUR ---
PATIENT LYING IN BED WITH EYES OPEN, DENIES PAIN AT THIS TIME. 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
--- NOTE | 2022-05-05 08:05 | NUR ---
BP 96/43 DR. RAYA MADE AWARE, GIVEN VERBAL ORDER OF NS BOLUS
--- NOTE | 2022-05-05 08:16 | NUR ---
Patient to be transferred to [facility]. Is being transferred due to INSURANCE. Receiving facility has accepting physician and available space. ER physician has signed transfer form. Patient or responsible republican has agreed to transfer and signed form. Patient belongings inventoried and will be sent with patient. Copy of nursing notes, lab reports, Physicians Orders and X-rays to be sent with patient. Report called to JUDD at receiving facility. [facility] ambulance service has been called for transfer. ETA is 0900.
--- NOTE | 2022-05-05 09:00 | NUR ---
PATIENT AMBULATED TO RESTROOM WITH STEADY GAIT
--- NOTE | 2022-05-05 10:00 | NUR ---
PATIENT LYING IN BED WITH EYES OPEN, TALKING ON THE PHONE. DENIES PAIN OR DISCOMFORT AT THIS TIME, LIGHTS DIMMED FOR COMFORT, PATIENT ON BEDSIDE CARDIACE MONITOR, ALL NEEDS MET AT THIS TIME.
[2022-05-05 12:10] VITALS: BP 106/68
--- NOTE | 2022-05-05 12:10 | NUR ---
[facility]
--- NOTE | 2022-05-05 12:10 | NUR ---
Julien sanchez in [facility] - 05/05/22 at 1212 by JAQUAN [facility] BEDSIDE FOR PATIENT TRANSFER TO [facility]
== END 2022-05-05 12:10 | disposition short-term general hospital (02) ==
LOC: MED 00:26
DX: K57.32 Diverticulitis of large intestine without perforation or abscess without bleeding (principal); Z20.822 Contact with and (suspected) exposure to COVID-19; Z79.899 Other long term (current) drug therapy
CPT/HCPCS: 36415; 74176; 80053; 81001; 83605; 85025; 87040; 87086; 87426; 96361; 96374; 99285; J1885; J7030